=== PATIENT | female | born 1955 | race Caucasian/White ===

== ENCOUNTER 2018-07-24 09:18 | Emergency (ER) | payer SELFPAY ==
[~2018-07-24] VITALS: Ht 152.4 cm; Wt 90.7 kg
[2018-07-24 09:24] VITALS: Ht 152.4 cm; Wt 90.7 kg
[2018-07-24 13:34] VITALS: BP 122/62
== END 2018-07-24 13:34 | disposition home or self-care (01) ==
LOC: ED 09:18
DX: S29.011A Strain of muscle and tendon of front wall of thorax, initial encounter (principal); S16.1XXA Strain of muscle, fascia and tendon at neck level, initial encounter; M25.511 Pain in right shoulder; M54.9 Dorsalgia, unspecified; V43.62XA Car passenger injured in collision with other type car in traffic accident, initial encounter; Y93.89 Activity, other specified; Y92.488 Other paved roadways as the place of occurrence of the external cause; Y99.8 Other external cause status
CPT/HCPCS: J1885; J3010; Q0162